=== PATIENT | female | born 1955 | race Two or more races ===

== ENCOUNTER 2021-01-18 10:57 | Emergency (ER) | payer OTHER ==
[~2021-01-18] VITALS: Ht 157.5 cm; Wt 88.5 kg
[2021-01-18 11:18] VITALS: BP_SYST 156
[2021-01-18] MEDS ORDERED: NACL 0.9% 1,000 ML IV ONE (12:45)
[2021-01-18] MEDS ORDERED: MECLIZINE HCL 25 MG TABLET (ANITVERT) PO ONE (12:45)
[2021-01-18] MEDS ORDERED: ONDANSETRON HCL 4 MG/2 ML VIAL IVP ONE (12:45)
[2021-01-18 13:06] LABS: BASOPHILS % (AUTO) 0.6 % (0.0-2.0); EOSINOPHILS % (AUTO) 0.2 % (0.0-4.0); HEMATOCRIT 41.8 % (36-48); HEMOGLOBIN 14.1 g/dL (12.0-16.0); LYMPHOCYTES # (AUTO) 1.3 K/uL (1.0-5.5); LYMPHOCYTES % (AUTO) 14.4 % (20.5-51.5); MEAN CORPUSCULAR HEMOGLOBIN 31 pg (27-31); MEAN CORPUSCULAR HGB CONC 34 % (32-36); MEAN CORPUSCULAR VOLUME 92 fL (79.0-98.0); MONOCYTES # (AUTO) 0.3 K/uL (0.0-1.0); NEUTROPHILS # (AUTO) 7.2 K/uL (1.8-7.7); NEUTROPHILS % (AUTO) 81.8 % (40.0-70.0); PLATELET COUNT (AUTO) 172 K/uL (130-430); RED BLOOD CELL COUNT(AUTO) 4.53 MIL/uL (4.2-6.2); RED CELL DISTRIBUTION WIDTH 13.4 % (9.0-15.0); WHITE BLOOD COUNT (AUTO) 8.8 K/uL (4.8-10.8)
[2021-01-18 13:22] LABS: CALCIUM 9.1 mg/dL (8.4-11.0); CREATININE 0.81 mg/dL (0.55-1.30)
[2021-01-18 13:27] LABS: ALBUMIN 3.9 g/dL (3.4-4.8); TOTAL BILIRUBIN 0.5 mg/dL (0.0-1.0)
[2021-01-18] MEDS ORDERED: ONDA-8 TL (13:43)
[2021-01-18 14:01] VITALS: BP_SYST 140
== END 2021-01-18 14:01 | disposition home or self-care (01) ==
LOC: SED 10:57
DX: R42 Dizziness and giddiness (principal); Z88.6 Allergy status to analgesic agent; Z79.899 Other long term (current) drug therapy
CPT/HCPCS: 36415; 80053; 85025; 93005; 96361; 96374; 99283; J2405; J7030; J8597